=== PATIENT | female | born 1975 | race Hispanic/Latino ===

== ENCOUNTER 2017-10-03 13:41 | Outpatient (CLI) | payer BC ==
--- NOTE | 2017-10-03 14:33 | Mammography Report ---
Right mammogram: Additional compression imaging of the right breast is performed for a tubular appearing structure in the inferolateral right breast. Review of prior exams in March 2016 and the exam in August 2017 would appear to indicate that this tubular structure is a vessel and has not significantly changed. No mass, architectural distortion, calcification present. Impression: Prominent right vascular structure. No suspicion of malignancy. Recommendation: Annual mammogram followup. BI-RADS CATEGORY: 2 = Benign ACR BI-RADS MAMMOGRAPHIC CODES: 0 = Needs additional imaging evaluation; 1 = Negative; 2 = Benign; 3 = Probably benign; 4 = Suspicious; 5 = Malignant; 6 = Known biopsy-proven malignancy COMMENT: 1. Dense breast tissue, i.e., adenosis, fibrocystic changes, etc., may obscure an underlying neoplasm. 2. Approximately 10% of cancers are not detected with mammography. 3. A negative mammography report should not delay biopsy if a clinically suspicious mass is present.
== END 2017-10-03 13:42 | disposition home or self-care (01) ==
LOC: SPVWC 13:41
PROVIDERS: ATTEND Obstetrics & Gynecology
DX: R92.8 Other abnormal and inconclusive findings on diagnostic imaging of breast (principal)
CPT/HCPCS: G0206-RT

== ENCOUNTER 2018-12-08 09:21 | Outpatient (CLI) | payer BC ==
--- NOTE | 2018-12-08 10:09 | Mammography Report ---
Bilateral mammogram: Compared to 10/03/17, 08/26/17 and 04/09/16. CAD study utilized. Findings: Predominance of adipose tissue bilaterally. Focal new asymmetry subareolar area left breast. No microcalcification. Normal axilla. Impression: Focal new asymmetry left breast. Recommend spot compression and sonographic examination. A BI-RADS CATEGORY: 0 = Needs additional imaging evaluation ACR BI-RADS MAMMOGRAPHIC CODES: 0 = Needs additional imaging evaluation; 1 = Negative; 2 = Benign; 3 = Probably benign; 4 = Suspicious; 5 = Malignant; 6 = Known biopsy-proven malignancy COMMENT: 1. Dense breast tissue, i.e., adenosis, fibrocystic changes, etc., may obscure an underlying neoplasm. 2. Approximately 10% of cancers are not detected with mammography. 3. A negative mammography report should not delay biopsy if a clinically suspicious mass is present. COMMENT: Patient follow-up letters are generated in [employer].
== END 2018-12-08 09:22 | disposition home or self-care (01) ==
LOC: SPVWC 09:21
PROVIDERS: ATTEND Obstetrics & Gynecology
DX: Z12.31 Encounter for screening mammogram for malignant neoplasm of breast (principal)
CPT/HCPCS: 77067

== ENCOUNTER 2019-06-11 12:50 | Outpatient (CLI) | payer BC ==
--- NOTE | 2019-06-11 15:46 | Mammography Report ---
LEFT DIGITAL DIAGNOSTIC MAMMOGRAM and TARGETED LEFT BREAST ULTRASOUND INDICATION: Recall for asymmetry. TECHNIQUE: Digital left mammographic imaging was performed. COMPARISON: 12/08/2018 FINDINGS: Breast Density: The breast is heterogeneously dense, which may obscure small masses. Additional left mammographic views were performed and are negative. Ultrasound of the inner left breast was performed and demonstrated normal fibroglandular structures. No mass, cyst or shadowing. IMPRESSION: Negative left diagnostic mammogram and negative left breast ultrasound. BI-RADS Category 1: Negative. Recommend routine screening mammography in one year. A "normal" or negative report should not discourage follow up or biopsy of a clinically significant f inding. A written summary of these findings will be mailed to the patient. The patient will be entered into a mammography reporting system which will generate a reminder letter for the patient's next appointmen t at the appropriate interval. FURTHER INFORMATION: According to the [employer], yearly mammograms are recommend ed starting at age 40 and continuing as long as a woman is in good health. Breast MRI is recommended for women with an approximately 20-25% or greater lifetime risk of breast cancer, including women wi th a strong family history of breast or ovarian cancer and women who have been treated for Hodgkin's disease. Signer Name: Tha Ruth MD Signed: 06/11/2019 3:41 PM Workstation Name: [id number]
--- NOTE | 2019-06-11 15:49 | Ultrasound Report ---
LEFT DIGITAL DIAGNOSTIC MAMMOGRAM and TARGETED LEFT BREAST ULTRASOUND INDICATION: Recall for asymmetry. TECHNIQUE: Digital left mammographic imaging was performed. COMPARISON: 12/08/2018 FINDINGS: Breast Density: The breast is heterogeneously dense, which may obscure small masses. Additional left mammographic views were performed and are negative. Ultrasound of the inner left breast was performed and demonstrated normal fibroglandular structures. No mass, cyst or shadowing. IMPRESSION: Negative left diagnostic mammogram and negative left breast ultrasound. BI-RADS Category 1: Negative. Recommend routine screening mammography in one year. A "normal" or negative report should not discourage follow up or biopsy of a clinically significant f inding. A written summary of these findings will be mailed to the patient. The patient will be entered into a mammography reporting system which will generate a reminder letter for the patient's next appointmen t at the appropriate interval. FURTHER INFORMATION: According to the [employer], yearly mammograms are recommend ed starting at age 40 and continuing as long as a woman is in good health. Breast MRI is recommended for women with an approximately 20-25% or greater lifetime risk of breast cancer, including women wi th a strong family history of breast or ovarian cancer and women who have been treated for Hodgkin's disease. Signer Name: Tha Ruth MD Signed: 06/11/2019 3:45 PM Workstation Name: [id number]
== END 2019-06-11 12:51 | disposition home or self-care (01) ==
LOC: SPVWC 12:50
PROVIDERS: ATTEND Obstetrics & Gynecology
DX: R92.8 Other abnormal and inconclusive findings on diagnostic imaging of breast (principal)

== ENCOUNTER 2020-04-15 09:57 | Outpatient (CLI) | payer BC ==
--- NOTE | 2020-04-15 15:28 | Mammography Report ---
DIGITAL SCREENING MAMMOGRAM WITH CAD, 04/15/2020 INDICATION: Routine screening mammography. TECHNIQUE: Digital bilateral 2D mammography was obtained in the craniocaudal and mediolateral obliq ue projections. This examination was interpreted with the benefit of Computer-Aided Detection analysi s. COMPARISON: 08/26/2017, 06/11/2019. FINDINGS: Breast Density: There are scattered areas of fibroglandular density. There is no evidence of dominant mass, suspicious calcifications or architectural distortion in the l eft breast. Possible developing asymmetry central region of the right breast. Spot compression views with possible ultrasound recommended. IMPRESSION: Follow up recommendation: Special View: Spot Category 0: Incomplete. Needs additional imaging evaluation and/or prior mammograms for comparison. A "normal" or negative report should not discourage follow up or biopsy of a clinically significant f inding. A written summary of these findings will be mailed to the patient. The patient will be entered into a mammography reporting system which will generate a reminder letter for the patient's next appointmen t at the appropriate interval. The [employer] recommends yearly mammograms starting at age 40 and continuing as l walter as a woman is in good health. Breast MRI is recommended for women with an approximate 20-25% or greater lifetime risk of breast cancer, including women with a strong family history of breast or ova connie cancer or who have been treated for Hodgkin's disease. Signer Name: Peter Balderas MD Signed: 04/15/2020 3:23 PM Workstation Name: [id number]
== END 2020-04-15 09:58 | disposition home or self-care (01) ==
LOC: SPVWC 09:57
PROVIDERS: ATTEND Obstetrics & Gynecology
DX: Z12.31 Encounter for screening mammogram for malignant neoplasm of breast (principal); N64.89 Other specified disorders of breast
CPT/HCPCS: 77067